=== PATIENT | male | born 1945 | race Caucasian/White ===

== ENCOUNTER → 2017-03-24 | Outpatient (CLI) | payer MEDICARE | END | disposition home or self-care (01) | LOC: LABWHC1 13:57 | PROVIDERS: ATTEND Orthopaedic Surgery | DX: Z01.812 Encounter for preprocedural laboratory examination (principal) | CPT/HCPCS: 87070 ==

== ENCOUNTER 2017-04-14 08:25 | Inpatient (IN) | payer MEDICARE ==
[2017-04-09 15:00] VITALS: BMI 28.7
--- NOTE | 2017-04-13 18:54 | HP ---
HISTORY AND PHYSICAL REASON FOR ADMISSION: Surgery is 04/14/2017 HISTORY OF PRESENT ILLNESS: Rigoberto is a 71-year-old patient seen with symptomatic left knee osteoarthritis. After having treatment options discussed, he elected to proceed left total knee arthroplasty. Consent regarding the procedure was obtained. Medical clearance was provided by Dr. Sharpe. PAST MEDICAL HISTORY: Hyperlipidemia, hypertension, gastroesophageal reflux disease, cardiovascular disease. PAST SURGICAL HISTORY: Total hip arthroplasty. DAILY MEDICATIONS: Aspirin, omeprazole, amlodipine, rosuvastatin, maxalone. ALLERGIES: None. SOCIAL HISTORY: Patient denies tobacco use. PHYSICAL EXAMINATION: Evaluation of left knee range of motion 0-115 degrees. Tenderness along the medial joint line. Positive medial Aparna's. Mild effusion. Crepitus along the medial patellofemoral compartments with range of motion. Pain with patellofemoral compression. Ligaments stable. Hip rotation without pain. Distal neurovascular exam intact. RADIOGRAPHS: Left knee radiographs reveal severe medial and moderate patellofemoral compartment osteoarthritis. IMPRESSION: Left knee osteoarthritis. PLAN: Left total knee arthroplasty. Surgery is 04/14/2017. MMODL / IJN: [id number] /
[~2017-04-14 08:25] MED LIST: ACETAMINOPHEN TAB 500 MG TAB PO ONE; HYDROmorphone 0.5 MG/0.5 ML SYRINGE IVP PRN; MELOXICAM 7.5 MG TAB PO ONE; MIDAZOLAM 2 MG/2 ML VIAL IV PRN; MORPHINE SULFATE 4 MG/ML SYRINGE IV PRN; ONDANSETRON 4 MG/2 ML VIAL IVP PRN; TRANEXAMIC ACID 1,000 MG in SODIUM CHLORIDE 0.9% 50 ML IVPB ONE; ceFAZolin IN SWFI 2 GM/20 ML SYRINGE IVP ONE
[2017-04-14] MEDS: LACTATED RINGERS 1,000 ML IV SCH ×4 (09:09→22:33)
[2017-04-14] MEDS ORDERED: LIDOCAINE 1% 20 ML VIAL (10MG/ML) FOR IV START INTRADERMA ONE (09:09)
[2017-04-14] MEDS ORDERED: ROPIVACAINE 246.25 MG, EPINEPHrine 0.5 MG, KETOROLAC 30 MG, cloNIDine HCL/PF 80 MCG, WA... MISCELLANE ONE ×5 (09:35)
[2017-04-14] MEDS ORDERED: MIDAZOLAM 2 MG/2 ML VIAL IVP ONE (09:40)
[2017-04-14] MEDS ORDERED: MIDAZOLAM 2 MG/2 ML VIAL ONE (10:01)
[2017-04-14] MEDS ORDERED: TRANEXAMIC ACID 1,000 MG/10 ML VIAL ONE (10:01)
[2017-04-14] MEDS ORDERED: fentaNYL (PF) 50 MCG/ML 2 ML AMP ONE (10:01)
[2017-04-14] MEDS ORDERED: diphenhydrAMINE 50 MG/ML 1 ML VIAL ONE (10:01)
[2017-04-14] MEDS ORDERED: PROPOFOL 10 MG/ML 20 ML VIAL IV ONE (10:01)
[2017-04-14] MEDS ORDERED: SODIUM CHLORIDE 0.9% 100 ML BAG ONE (10:01)
[2017-04-14] MEDS ORDERED: LACTATED RINGERS 1,000 ML IV ONE ×2 (11:28)
[2017-04-14] MEDS ORDERED: HYDROcodone/APAP 7.5-325MG 1 EACH TAB PO PRN (11:57)
[2017-04-14] MEDS ORDERED: hydrOXYzine PAMOATE 25 MG CAP PO PRN (11:57)
[2017-04-14] MEDS ORDERED: ONDANSETRON 4 MG/2 ML VIAL IVP PRN (11:57)
[2017-04-14] MEDS ORDERED: NALOXONE 0.4 MG/ML 1 ML VIAL IV PRN (11:57)
[2017-04-14] MEDS ORDERED: HYDROmorphone 0.5 MG/0.5 ML SYRINGE IVP PRN ×3 (11:57)
--- NOTE | 2017-04-14 11:57 | P.OP ---
Date of Procedure: 04/14/17 Preoperative Diagnosis: Left knee osteoarthritis Postoperative Diagnosis: Left knee osteoarthritis Procedure(s) Performed: Left total knee arthroplasty Implants: 1. Rahul persona size 10 left narrow cruciate retaining cemented femur 2. Rahul persona size 5 left cemented tibia 3. Rahul persona 10 mm medial congruent polyethylene tibial insert 4. Rahul persona 35 mm all polyethylene cemented patella Anesthesia: regional (Adductor canal catheter), local, spinal Surgeon: Sukhjinder Finn Deadener #1: Getachew Hensley Estimated Blood Loss (ml): 50 Pathology: other (bone) Condition: stable Disposition: PACU Indications for Procedure: 71-year-old patient seen with symptomatic left knee osteoarthritis. After treatment options were discussed, he elected to proceed with total knee arthroplasty. Operative Findings: see description of procedure Description of Procedure: Patient was taken to the operative suite after having and adductor canal catheter placed by the department of anesthesia. Patient underwent a spinal anesthetic by the department of anesthesia. Patient was given preoperative IV intake antibiotics and TXA. A well-padded tourniquet was placed about the [] lower extremity. The lower extremity was then prepped and draped in the normal sterile orthopedic fashion. The extremity was elevated, a tourniquet was insufflated to 350. A standard anterior incision was made sharply through skin. Dissection was taken down through the subcutaneous soft tissues down to the extensor mechanism. A medial arthrotomy was performed, patella was everted and knee was flexed. There was advanced osteoarthritis noted. A proximal tibial cutting guide was positioned. Proximal tibial cut was made. A distal intramedullary femoral cutting guide was positioned, distal femoral cut made. We placed the appropriate sizing guide and selected the appropriate size. A distal 4-in-1 femoral cutting block was positioned, distal femoral cuts were made. We now placed a trial femoral component into position, along with an appropriate size tibial tray and insert. We now took the knee through range of motion and had full extension good flexion and good overall soft tissue balance noted. The patella was everted and a flush cut made with patellar quad tendon. We templated the patella, appropriate drill holes were made. An appropriate trial patella was positioned, knee was taken through full range of motion with the patella tracking very nicely. The trial patella was removed. Drill holes were made through the femoral component. All trial components were removed after marking off the appropriate rotation of the tibia. Retractors were now positioned along the proximal tibia. An appropriate keel punch was made with the appropriate size tibial guide. At this point appropriate size implants were chosen and opened. The joint was irrigated copiously with pulse lavage mechanical irrigation. The posterior capsule was infiltrated with local analgesic. We mixed antibiotic methylmethacrylate. Once the methyl methacrylate was ready, the tibial component was cemented into place removing any excess methylmethacrylate. The femoral component was cemented into place removing the removing any excess methylmethacrylate. We then inserted the appropriate size polyethylene tibial insert. We made sure that it was locked into position. We took the knee into full extension, and then back in a flexion making sure we had removed any excess methylmethacrylate. The patellar component was then cemented down and secured with clamp. Excess methylmethacrylate removed. We kept the knee in full extension, patellar clamp in position until methylmethacrylate had hardened. Once it had hardened the patellar clamp was removed. The knee was taken through full range of motion. The patella tracked nicely. There was good soft tissue balancing. The tourniquet was now released. Additional hemostasis was achieved via electrocautery. A second gram of TXA was given. The wound was irrigated with pulse lavage mechanical irrigation. The extensor mechanism was repaired with Vicryl. We checked the repair with range of motion and it was stable. The subcutaneous soft tissues were repaired with Vicryl in layers. The skin was approximated with pernio/Dermabond. Sterile dressings were applied followed by loose web roll and Stephen bandage. The patient was transferred to a bed, and taken to recovery in stable and satisfactory condition. Jaison RIVERA assisted with the procedure.
--- NOTE | 2017-04-14 13:13 | XR ---
EXAMINATION TYPE: XR knee limited LT DATE OF EXAM: 04/14/2017 COMPARISON: NONE HISTORY: Post knee replacement TECHNIQUE: 2 view left knee FINDINGS: Tibial and femoral components of in place. Some surgical amanda are within the soft tissue s of the distal thigh. Postsurgical changes are within the knee joint space. No acute fractures are e vident. IMPRESSION: 1. No acute fractures post knee replacement.
[2017-04-14] MEDS ORDERED: ROPIVACAINE 1,100 MG, SODIUM CHLORIDE 0.9% 330 ML MISCELLANE PRN ×2 (13:22)
[2017-04-14] MEDS ORDERED: diphenhydrAMINE 50 MG/ML 1 ML VIAL IVP ONE (15:02)
--- NOTE | 2017-04-14 16:16 | P.CONS ---
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 Patient presents to the hospital for a left total knee arthroplasty with Dr. Finn. Patient tolerated surgery well. Estimated blood loss 50 mL. Patient denies any chest pain, shortness of breath, nausea or vomiting, bowel movement changes or urinary symptoms. Denies any fever chills or sweats. We've been consulted for medical management Review of Systems please refer to HPI otherwise unremarkable Past Medical History Past Medical History: Coronary Artery Disease (CAD), CVA/TIA, Eye Disorder, GERD /Reflux, Hyperlipidemia, Hypertension, Osteoarthritis (OA), Sleep Apnea/CPAP/ BIPAP, Syncope Additional Past Medical History / Comment(s): RT EYE STROKE, HX CATARACT. USING CPAP. History of Any Multi-Drug Resistant Organisms: None Reported Past Surgical History: Heart Catheterization With Stent, Joint Replacement, Tonsillectomy Additional Past Surgical History / Comment(s): TOTAL RT HIP. RT EYE CATARACT EXC, IMPLANT. LOOP IMPLANT, ICM DEVICE, 23pressTRONIC. Past Anesthesia/Blood Transfusion Reactions: No Reported Reaction Date of Last Stent Placement:: 2013 Type of Cardiac Device: Loop Device Placement Date:: 2013 EST Smoking Status: Never smoker - Past Family History Father Family Medical History: Cancer Mother Family Medical History: Cancer Medications and Allergies Home Medications Medication Instructions Recorded Confirmed Type Aspirin 325 mg PO DAILY 05/17/15 04/14/17 History Clopidogrel [Plavix] 75 mg PO DAILY 05/17/15 04/14/17 History Ibuprofen [Motrin] 800 mg PO Q8H PRN 05/17/15 04/14/17 History Magnesium Oxide [Mag-Ox] 400 mg PO HS 05/17/15 04/14/17 History Multivitamin [Men's Multi-Vitamin] 1 tab PO DAILY 05/17/15 04/14/17 History [place]-3 Fatty Acids/Fish Oil [Fish 500 mg PO DAILY 05/17/15 04/14/17 History Oil 1,000 mg Softgel] Omeprazole [PriLOSEC] 20 mg PO AC-BRKFST 05/17/15 04/14/17 History rOPINIRole HCL [Requip] 2 mg PO TID 05/17/15 04/14/17 History Rosuvastatin Calcium 5 mg PO HS 04/09/17 04/14/17 History amLODIPine [Norvasc] 10 mg PO DAILY 04/09/17 04/14/17 History Allergies Allergy/AdvReac Type Severity Reaction Status Date / Time No Known Allergies Allergy Verified 04/14/17 13:06 Physical Exam Vitals: Vital Signs Temp Pulse Pulse Resp BP BP Pulse Ox 04/14/17 15:55 97.6 F 84 14 144/76 97 04/14/17 15:00 77 18 140/77 96 04/14/17 14:16 62 18 135/72 98 04/14/17 13:35 61 18 131/65 96 04/14/17 13:20 70 18 120/56 96 04/14/17 13:05 73 18 121/56 95 04/14/17 12:50 66 18 129/60 04/14/17 12:37 77 18 136/64 99 04/14/17 12:22 97.6 F 87 18 138/65 98 04/14/17 09:58 70 18 155/75 99 04/14/17 08:46 97.8 F 81 18 184/82 98 Intake and Output 04/14/17 04/14/17 04/14/17 06:59 14:59 22:59 Intake Total 1100 200 Output Total 50 Balance 1050 200 Intake: IV 1100 200 Output: Estimated Blood Loss 50 Head normocephalic Neck supple Lungs clear to auscultation bilaterally no wheezing or crackles Heart regular rate and rhythm S1-S2, no rub or gallop Abdomen is soft nontender nondistended positive bowel sounds no hepatosplenomegaly Extremities no edema. Left knee bandaged clean dry and intact Neuro alert and orientated to 3 Assessment and Plan Assessment: 1. Osteoarthritis: Status post left total knee arthroplasty. On Lovenox for DVT prophylaxis. Continue with current meds for pain control 2. Essential hypertension:blood pressure stable. Resume Norvasc 3. Hyperlipidemia resume statin 4. Restless legs syndrome continue Requip 5. History of coronary artery disease with cardiac stents and triple-vessel coronary artery bypass grafting. Continue aspirin and Plavix 6. 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 Obstructive sleep apnea uses CPAP at home 8. GERD resume omeprazole GI prophylaxis omeprazole and Lovenox Thank you for this consultation. We'll continue to follow along with you. Checked a routine CBC and BMP in a.m. Time with Patient: Greater than 30 (Greater than 50% of the total time spent in counseling and coordination of care.I performed an examination of the patient and discussed their management with the physician Ekg Tech. I have reviewed the Physician Ekg Tech's notes and agree with the documented findings and plan of care)
[2017-04-14] MEDS: HYDROcodone/APAP 7.5-325MG 1 EACH TAB PO PRN ×2 (16:27→22:31)
[2017-04-14] MEDS: traMADol 50 MG TAB PO SCH ×2 (17:46→23:07)
[2017-04-14] MEDS: ceFAZolin IN SWFI 2 GM/20 ML SYRINGE IVP SCH (17:46)
[2017-04-14] MEDS: ENOXAPARIN 30 MG/0.3 ML SYRINGE SQ SCH (20:07)
[2017-04-14] MEDS ORDERED: ATORVASTATIN 10 MG TAB PO SCH (21:00)
[2017-04-14] MEDS ORDERED: SENNOSIDES-DOCUSATE SODIUM 1 EACH TAB PO SCH (21:00)
[2017-04-14] MEDS ORDERED: MAGNESIUM OXIDE 400 MG TAB PO SCH (21:00)
[2017-04-15] MEDS: LACTATED RINGERS 1,000 ML IV SCH ×2 (00:50→08:59)
[2017-04-15] MEDS: ceFAZolin IN SWFI 2 GM/20 ML SYRINGE IVP SCH (02:03)
[2017-04-15] MEDS: HYDROcodone/APAP 7.5-325MG 1 EACH TAB PO PRN ×2 (04:22→10:15)
[2017-04-15 06:56] VITALS: PULSE 89; RESP 14; TEMP 98.7
[2017-04-15 07:28] LABS: Basophils % (A) 0 %; Eosinophils # (A) 0.2 k/uL (0-0.7); Eosinophils % (A) 3 %; HCT 38.2 % (39.0-53.0); HGB 12.2 gm/dL (13.0-17.5); Lymphocytes % (A) 14 %; MCH 29.2 pg (25.0-35.0); MCHC 31.9 g/dL (31.0-37.0); MCV 91.5 fL (80.0-100.0); Mean Platelet Volume 8.3; Monocytes # (A) 0.5 k/uL (0-1.0); Monocytes % (A) 7 %; Neutrophils # (A) 5.3 k/uL (1.3-7.7); Neutrophils % (A) 74 %; Platelet Count 147 k/uL (150-450); RBC 4.18 m/uL (4.30-5.90); RDW 13.6 % (11.5-15.5); WBC 7.2 k/uL (3.8-10.6)
[2017-04-15] MEDS ORDERED: PANTOPRAZOLE 40 MG TABLET PO SCH (07:30)
[2017-04-15] MEDS: traMADol 50 MG TAB PO SCH (07:58)
[2017-04-15 08:00] LABS: Anion Gap 6 mmol/L; Blood Urea Nitrogen 21 mg/dL (9-20); Calcium 8.6 mg/dL (8.4-10.2); Carbon Dioxide 31 mmol/L (22-30); Chloride 102 mmol/L (98-107); Glucose 90 mg/dL (74-99); Sodium 139 mmol/L (137-145)
[2017-04-15 08:03] LABS: Potassium 5.3 mmol/L (3.5-5.1)
[2017-04-15] MEDS: ENOXAPARIN 30 MG/0.3 ML SYRINGE SQ SCH (08:10)
[2017-04-15] MEDS ORDERED: SODIUM POLYSTYRENE SULFONATE 15 GM/60 ML BOTTLE PO STA (08:29)
[2017-04-15] MEDS ORDERED: NON-FORMULARY DRUG (Multivitamin [Men's Multi-Vitamin] 1 TAB) PO SCH (09:00)
[2017-04-15] MEDS ORDERED: OMEGA PO SCH (09:00)
[2017-04-15] MEDS ORDERED: FAMOTIDINE 20 MG TAB PO SCH (09:00)
[2017-04-15] MEDS ORDERED: ASPIRIN 325 MG TAB PO SCH (09:00)
[2017-04-15] MEDS ORDERED: FISH OIL PO SCH (09:00)
[2017-04-15] MEDS ORDERED: MELOXICAM 7.5 MG TAB PO SCH (09:00)
[2017-04-15] MEDS ORDERED: FATTY ACIDS PO SCH (09:00)
[2017-04-15] MEDS ORDERED: amLODIPine 10 MG TAB PO SCH (09:00)
[2017-04-15] MEDS ORDERED: CLOPIDOGREL 75 MG TAB PO SCH (09:00)
--- NOTE | 2017-04-15 09:58 | P.ONQ ---
Anesthesiology Proc Note - PNB - Peripheral Nerve Block Performed Left Adductor Canal Infusion Time Out Performed: Yes Procedure Start Time: 09:40 Procedure Stop Time: 09:48 Indication: Acute Post-Operative Pain, Requested by physician Sedation Type: Sedate with meaningful contact maintained Preparation: Sterile Dressing Position: Supine Catheter: Indwelling Needle Types: On-Q Needle Size: 100mm (4") Needle Gauge: 18 Technique: Ultrasound Injectate: 0.5% Ropivacaine (see comment for volume) (ropi .5% 20cc) Blood Aspirated: No Pain Paresthesia on Injection Noted: No Resistance on Injection: Normal Events: Uneventful and Well Tolerated
[2017-04-15 10:16] VITALS: BP 138/78
--- NOTE | 2017-04-15 10:16 | P.PN ---
Progress Note - Text 04/15 658am This 71-year-old male status post left total knee replacement by Dr. Finn. Patient seen and evaluated for postop pain control this morning, patient had a VAS of 2 slept well through the night On-Q pump solution running at 8 mL an hour. Plans to go home today
--- NOTE | 2017-04-15 11:30 | P.PN ---
Subjective Progress Note Date: 04/15/17 Principal diagnosis: status post left total knee arthroplasty patient is seen today resting in his hospital bed, he appears comfortable. He is ambulating well with therapy. He is urinating his own. He denies any headaches, lightheadedness, chest pain or shortness of breath. Objective - Vital Signs Vital signs: Vital Signs Temp 98.7 F 04/15/17 06:54 Pulse 89 04/15/17 06:54 Resp 14 04/15/17 06:54 BP 138/78 04/15/17 10:16 Pulse Ox 97 04/15/17 06:54 Intake & Output 04/14/17 04/15/17 04/15/17 18:59 06:59 18:59 Intake Total 1300 1280 240 Output Total 50 650 Balance 1250 630 240 Weight 90.718 kg Intake: IV 1300 Intake, IV Titration 880 Amount Lactated Ringers 1,000 ml 880 @ 80 mls/hr IV .[id number] MONA Rx#:[id number] Oral 400 240 Output: Urine 650 Estimated Blood Loss 50 Other: Voiding Method Toilet - Exam left lower extremity: Incision is clean, dry, and intact. The prineo tape is in good condition. There is minimal soft tissue swelling and ecchymosis surrounding the medial and lateral aspects of the incision. Calf is soft, no tenderness with palpation. Plantar flexion, dorsiflexion, EHL, FHL are intact. Sensory exam to light touch throughout the extremity is intact, dorsal pedis pulses 2+. - Labs CBC & Chem 7: 04/15/17 06:39 04/15/17 06:39 Labs: Abnormal Lab Results - Last 24 Hours (Table) 04/15/17 04/15/17 Range/Units 06:39 06:39 RBC 4.18 L (4.30-5.90) m/uL Hgb 12.2 L (13.0-17.5) gm/dL Hct 38.2 L (39.0-53.0) % Plt Count 147 L (150-450) k/uL Potassium 5.3 H (3.5-5.1) mmol/L Carbon Dioxide 31 H (22-30) mmol/L BUN 21 H (9-20) mg/dL Assessment and Plan Plan: assessment: 1. Postop day 1 status post left total knee arthroplasty plan: 1. Patient will be discharged home on oral medication 2. Home therapy and nursing of discharge 3. GI and DVT prophylaxis, he'll resume his home aspirin and Plavix 4. Wound care instructions were discussed 5. Medical recommendations 6. Discharge planning: Patient will be discharged home today Time with Patient: Less than 30
--- NOTE | 2017-04-15 11:33 | P.DS ---
Providers Date of admission: 04/14/17 08:25 Expected date of discharge: 04/15/17 Attending physician: Sukhjinder Finn Consults: 04/14/17 11:57 Consult Physician Routine Consulting Provider: Helen Mcallister Consult Reason/Comments: Medical management Do you want consulting provider notified?: Yes Primary care physician: [facility] Course: Date of admission: 04/14/2017 Date of discharge: 04/15/2017 Admission diagnosis: status post left total knee arthroplasty Discharge diagnosis: same Attending physician: Dr. Finn Surgical procedures: left total knee arthroplasty Brief history: Patient is a 71-year-old male with a history of progressive primary left knee osteoarthritis . At this point patient has failed conservative treatment measures and has opted to proceed with a elective left total knee arthroplasty. Hospital course: Details of patient's surgery can be found in operative report. Patient tolerated the procedure well and was subsequently transported to orthopedic floor. Patient's orthopeidc and medical care was provided daily. Patient had daily laboratory tests performed for evaluation of overall blood counts. Patient had daily physical therapy to include strengthening range of motion as well as education with walker ambulation. Patient had daily CPM usage as part of their physical therapy program. Patient was treated with Lovenox for their postoperative DVT prophylaxis during their inpatient stay. Patient was noted to have a relatively uneventful postoperative course. Patient reported satisfactory pain control with oral pain medications by postoperative day 0. Patient showed satisfactory progress with physical therapy. Patient moved steadily through the program and had no difficulty meeting the goals by postoperative day 1. Given patient's otherwise satisfactory course and having met physical therapy goals, plan is to discharge patient home on postoperative day 1. Discharge condition/disposition: Patient will be discharged home in stable condition. Discharge medications: Instructions are given on resumption of patient's normal daily medications per primary care recommendation, in addition patient will be prescribed Butler 7.5 mg/325 mg, tramadol 50 mg, Colace 100 mg. Discharge instructions: 1. Wound care and infection precautions, keep incision dry and covered while showering, no lotions, creams, moisturizers. No soaking, tubs, pools, hottubs. Do not scrub over the incision. 2. Weight-bear as tolerate with walker / cane until follow-up. 3. Ice and elevate when necessary. Do not exceed 20 minutes per hour with ice pack. 4. Utilize compression sleeve until seen at first follow up appointment. 5. Visiting nursing care. 6. Home physical therapy including home CPM. 7. Pain meds and anticoagulants per prescription. 8. Pain medication has potential to cause constipation. Increase oral fluid and fiber intake. Contact primary care provider if you have not had a bowel movement within 48 hours after discharge 9. No anti-inflammatory medication until discussed at first post operative visit, this including Motrin, Aleve, Mobic, Diclofenac. 10. Follow up in office at 2 weeks postop with Jaison Hensley PA-C 11. Follow up with your primary care doctor 7-10 days after discharge. 12. Contact [facility] with any questions, . Procedures: Left total knee arthroplasty Patient Condition at Discharge: Good Plan - Discharge Summary Discharge Rx Participant: Yes New Discharge Prescriptions: New Docusate [Colace] 100 mg PO DAILY #30 capsule HYDROcodone/APAP 7.5-325MG [Butler 7.5] 1 - 2 each PO Q6HR PRN #60 tab PRN Reason: Pain traMADol HCl [Ultram] 50 mg PO Q6H PRN #40 tab PRN Reason: Pain Continue rOPINIRole HCL [Requip] 2 mg PO TID Clopidogrel [Plavix] 75 mg PO DAILY Aspirin 325 mg PO DAILY Omeprazole [PriLOSEC] 20 mg PO AC-BRKFST Multivitamin [Men's Multi-Vitamin] 1 tab PO DAILY [place]-3 Fatty Acids/Fish Oil [Fish Oil 1,000 mg Softgel] 500 mg PO DAILY Magnesium Oxide [Mag-Ox] 400 mg PO HS amLODIPine [Norvasc] 10 mg PO DAILY Rosuvastatin Calcium 5 mg PO HS Discontinued Ibuprofen [Motrin] 800 mg PO Q8H PRN PRN Reason: Pain Discharge Medication List Aspirin 325 mg PO DAILY 05/17/15 [History] Clopidogrel [Plavix] 75 mg PO DAILY 05/17/15 [History] Magnesium Oxide [Mag-Ox] 400 mg PO HS 05/17/15 [History] Multivitamin [Men's Multi-Vitamin] 1 tab PO DAILY 05/17/15 [History] [place]-3 Fatty Acids/Fish Oil [Fish Oil 1,000 mg Softgel] 500 mg PO DAILY [History] Omeprazole [PriLOSEC] 20 mg PO AC-BRKFST 05/17/15 [History] rOPINIRole HCL [Requip] 2 mg PO TID 05/17/15 [History] Rosuvastatin Calcium 5 mg PO HS 04/09/17 [History] amLODIPine [Norvasc] 10 mg PO DAILY 04/09/17 [History] Docusate [Colace] 100 mg PO DAILY #30 capsule 04/15/17 [Rx] HYDROcodone/APAP 7.5-325MG [Butler 7.5] 1 - 2 each PO Q6HR PRN #60 tab 04/15/17 [ Rx] traMADol HCl [Ultram] 50 mg PO Q6H PRN #40 tab 04/15/17 [Rx] Follow up Appointment(s)/Referral(s): [facility], [NON-STAFF] - Emily Sharpe DO [Primary Care Provider] - 04/24/17 10:30 am Getachew Hensley PAC [PHYSICIAN FERMENTER HELPER] - 04/30/17 1:50 pm Patient Instructions/Handouts: Knee Replacement (DC) Activity/Diet/Wound Care/Special Instructions: Orthopedic Discharge Instructions: 1. Wound care and infection precautions, keep incision dry and covered while showering, no lotions, creams, moisturizers. No soaking, pools, hot tubs. Do not scrub over incision. 2. Weight-bear as tolerated with walker / cane until follow-up. 3. Ice and elevate when necessary. Do not exceed 20 minutes per hour with ice pack. 4. Utilize compression sleeve until seen at first follow up appointment. 5. Visiting nursing care. 6. Home physical therapy including home CPM. 7. Pain meds and anticoagulants per prescription. 8. Pain medication has potential to cause constipation. Increase oral fluid and fiber intake. Contact primary care provider if you have not had a bowel movement within 48 hours after discharge. 9. No anti-inflammatory medication until discussed at first post operative visit, this including Motrin, Aleve, Mobic, Diclofenac. 10. Follow up in office at 2 weeks postop with Jaison Hensley PA-C 11. Follow up with your primary care doctor 7-10 days after discharge. 12. Contact [facility] with any questions, [phone]. 13. [facility] - [phone] - will deliver to room before discharge Discharge Disposition: HOME WITH HOME HEALTH SERVICES
[2017-04-15] MEDS ORDERED: MULTIVITAMINS, THERA 1 EACH TAB PO SCH (12:00)
--- NOTE | 2017-04-15 12:28 | P.PN ---
Subjective Progress Note Date: 04/15/17 Status post left total knee arthroplasty Patient's pain is controlled. He's been up and ambulating. He is scheduled for discharge today. Denies any chest pain or shortness breath. Denies any nausea or vomiting. Passing gas no bowel movement yet. Objective - Vital Signs Vital signs: Vital Signs Temp 98.7 F 04/15/17 06:54 Pulse 89 04/15/17 06:54 Resp 14 04/15/17 06:54 BP 138/78 04/15/17 10:16 Pulse Ox 97 04/15/17 06:54 Intake & Output 04/14/17 04/15/17 04/15/17 18:59 06:59 18:59 Intake Total 1300 1280 240 Output Total 50 650 Balance 1250 630 240 Weight 90.718 kg Intake: IV 1300 Intake, IV Titration 880 Amount Lactated Ringers 1,000 ml 880 @ 80 mls/hr IV .[id number] MONA Rx#:[id number] Oral 400 240 Output: Urine 650 Estimated Blood Loss 50 Other: Voiding Method Toilet - Exam Head normocephalic Neck supple Lungs clear to auscultation bilaterally no wheezing or crackles Heart regular rate and rhythm S1-S2, no rub or gallop Abdomen is soft nontender nondistended positive bowel sounds no hepatosplenomegaly Extremities no edema. Left knee incision clean dry and intact. Mild ecchymosis no evidence of cellulitis Neuro alert and orientated to 3 - Labs CBC & Chem 7: 04/15/17 06:39 04/15/17 06:39 Labs: Abnormal Lab Results - Last 24 Hours (Table) 04/15/17 04/15/17 Range/Units 06:39 06:39 RBC 4.18 L (4.30-5.90) m/uL Hgb 12.2 L (13.0-17.5) gm/dL Hct 38.2 L (39.0-53.0) % Plt Count 147 L (150-450) k/uL Potassium 5.3 H (3.5-5.1) mmol/L Carbon Dioxide 31 H (22-30) mmol/L BUN 21 H (9-20) mg/dL Assessment and Plan Assessment: 1. Osteoarthritis: Status post left total knee arthroplasty. For DVT prophylaxis orthopedics it just resume patient's aspirin and Plavix 2. Essential hypertension:blood pressure stable. Continue Norvasc 3. Hyperlipidemia resume statin 4. Restless legs syndrome continue Requip 5. History of coronary artery disease with cardiac stents and triple-vessel coronary artery bypass grafting. Continue aspirin and Plavix 6. 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 Obstructive sleep apnea uses CPAP at home 8. GERD resume omeprazole 9. Hyperkalemia potassium 5.3. Patient will be given Kayexalate 15 g 1. Recommend repeating a potassium level on Friday Patient is medically stable for discharge. We'll have him follow up with his PCP in 1 week
== END 2017-04-15 13:20 | disposition home health service (06) | DRG 470 ==
LOC: 2ORMAIN 08:25 → 3SUR 15:22
PROVIDERS: ADMIT Orthopaedic Surgery; ATTEND Orthopaedic Surgery
PROC: 0SRD0J9 Replacement of Left Knee Joint with Synthetic Substitute, Cemented, Open Approach (ICD-10-PCS; principal; 2017-04-14 10:20)
DX: M17.12 Unilateral primary osteoarthritis, left knee (principal); E87.5 Hyperkalemia; E78.5 Hyperlipidemia, unspecified; G25.81 Restless legs syndrome; G47.33 Obstructive sleep apnea (adult) (pediatric); I10 Essential (primary) hypertension; I25.10 Atherosclerotic heart disease of native coronary artery without angina pectoris; K21.9 Gastro-esophageal reflux disease without esophagitis; Z79.02 Long term (current) use of antithrombotics/antiplatelets; Z79.82 Long term (current) use of aspirin; Z79.899 Other long term (current) drug therapy; Z95.1 Presence of aortocoronary bypass graft; Z95.5 Presence of coronary angioplasty implant and graft; Z96.651 Presence of right artificial knee joint; Z86.73 Personal history of transient ischemic attack (TIA), and cerebral infarction without residual deficits
CPT/HCPCS: 80048; 85025; 88300

== ENCOUNTER 2020-01-21 14:17 | Emergency (ER) | payer MEDICARE, OTHER ==
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
--- NOTE | 2020-01-21 16:35 | XR ---
EXAMINATION TYPE: XR shoulder complete LT DATE OF EXAM: 01/21/2020 COMPARISON: NONE HISTORY: Shoulder pain TECHNIQUE: 3 views FINDINGS: I see no fracture nor dislocation. Glenohumeral joint is intact. Scapula is intact. IMPRESSION: Negative left shoulder exam.
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
[2020-01-21 16:52] VITALS: BP 152/80; PULSE 69; RESP 18; TEMP 97.8
[2020-01-22 01:02] LABS: HIV 2 AB Non-Reactive (Non-Reactive); HIV AB P24 Non-Reactive (Non-Reactive); HIV P24 AG Non-Reactive (Non-Reactive)
[2020-01-22 03:48] LABS: Hepatitis B Surface AB- Quant 3.5 mIU/mL; Hepatitis B Surface Antibody Non-Reactive (Non-Reactive); Hepatitis B Surface Antigen Non-Reactive (Non-Reactive); Hepatitis C IgG Antibody Non-Reactive (Non-Reactive)
== END 2020-01-21 16:52 | disposition home or self-care (01) ==
LOC: EC 14:17
DX: S46.912A Strain of unspecified muscle, fascia and tendon at shoulder and upper arm level, left arm, initial encounter (principal); S16.1XXA Strain of muscle, fascia and tendon at neck level, initial encounter; S29.011A Strain of muscle and tendon of front wall of thorax, initial encounter; K21.9 Gastro-esophageal reflux disease without esophagitis; E78.5 Hyperlipidemia, unspecified; I10 Essential (primary) hypertension; M19.90 Unspecified osteoarthritis, unspecified site; G47.33 Obstructive sleep apnea (adult) (pediatric); Z99.89 Dependence on other enabling machines and devices; Z79.899 Other long term (current) drug therapy; Z88.8 Allergy status to other drugs, medicaments and biological substances; Z79.82 Long term (current) use of aspirin; Z95.5 Presence of coronary angioplasty implant and graft; Z86.73 Personal history of transient ischemic attack (TIA), and cerebral infarction without residual deficits; T75.89XA Other specified effects of external causes, initial encounter; Z98.41 Cataract extraction status, right eye; Z96.1 Presence of intraocular lens; Y04.2XXA Assault by strike against or bumped into by another person, initial encounter; Y93.89 Activity, other specified; Y92.89 Other specified places as the place of occurrence of the external cause; Y99.0 Civilian activity done for income or pay
CPT/HCPCS: 36415; 71046; 86706; 86803; 87340; 87390; 99284

== ENCOUNTER → 2020-08-21 | Outpatient (CLI) | payer MEDICARE | END | disposition home or self-care (01) | LOC: LABPAT 10:39 | PROVIDERS: ATTEND Orthopaedic Surgery | DX: Z01.812 Encounter for preprocedural laboratory examination (principal) | CPT/HCPCS: 87070 ==

== ENCOUNTER 2020-09-25 05:47 | Day surgery (SDC) | payer MEDICARE ==
[2020-09-21 11:09] VITALS: BMI 31.5
--- NOTE | 2020-09-24 10:36 | HP ---
HISTORY AND PHYSICAL DATE OF SURGERY: 09/25/2020 HISTORY OF PRESENT ILLNESS: Rigoberto Kirby is a 74-year-old gentleman seen with symptomatic right knee osteoarthritis. We discussed options for treatment. He elected to proceed with right total knee arthroplasty. Consent was obtained. Medical clearance was provided by Dr. Sharpe. PAST MEDICAL HISTORY: Hypertension, hyperlipidemia, gastroesophageal reflux disease. PAST SURGICAL HISTORY: Hip arthroplasty, total knee arthroplasty, eye surgery. DAILY MEDICATIONS: Amlodipine, omeprazole, losartan, aspirin. ALLERGIES: NONE. SOCIAL HISTORY: Denies tobacco use. PHYSICAL EVALUATION OF THE RIGHT KNEE: Range of motion zero to 130. Mild effusion. Tenderness medial joint line. Crepitus medial patellofemoral compartments with range of motion. Pain with patellofemoral compression. Ligaments stable. Hip rotation without pain. Distal neurovascular exam is intact. RADIOGRAPHS: Radiographs of the right knee reveal severe osteoarthritic changes. IMPRESSION: 1. Right knee osteoarthritis. 2. Hypertension. 3. Hyperlipidemia. PLAN: Right total knee arthroplasty. MMODL / IJN: [id number] /
[~2020-09-25 05:47] MED LIST changes: -ACETAMINOPHEN TAB 500 MG TAB PO ONE; +ACETAMINOPHEN TAB 500 MG TAB PO PRN; +DEXAMETHASONE SOD PHOSPHATE 4 MG/ML 1 ML VIAL IV ONE; -HYDROmorphone 0.5 MG/0.5 ML SYRINGE IVP PRN; +LACTATED RINGERS 1,000 ML IV SCH; -MELOXICAM 7.5 MG TAB PO ONE; +MELOXICAM 7.5 MG TAB PO PRN; -MIDAZOLAM 2 MG/2 ML VIAL IV PRN; -MORPHINE SULFATE 4 MG/ML SYRINGE IV PRN; +ONDANSETRON 4 MG/2 ML VIAL IVP ONE; -ONDANSETRON 4 MG/2 ML VIAL IVP PRN; +ROPIVACAINE/EPI/CLONIDINE/KET 50 ML SYRINGE MISCELLANE PRN; +TRANEXAMIC ACID 1,000 MG in SODIUM CHLORIDE 0.9% 100 ML IVPB PRN; -TRANEXAMIC ACID 1,000 MG in SODIUM CHLORIDE 0.9% 50 ML IVPB ONE; -ceFAZolin IN SWFI 2 GM/20 ML SYRINGE IVP ONE
[2020-09-25] MEDS ORDERED: HYDROmorphone 0.5 MG/0.5 ML SYRINGE IVP PRN ×3 (07:00→09:20)
[2020-09-25] MEDS ORDERED: fentaNYL (PF) 50 MCG/ML 2 ML AMP IVP ONE (07:15)
[2020-09-25] MEDS ORDERED: MIDAZOLAM 2 MG/2 ML VIAL IVP ONE (07:15)
[2020-09-25 07:16] LABS: Basophils % (A) 0 %; Eosinophils # (A) 0.2 k/uL (0-0.7); Eosinophils % (A) 4 %; HCT 38.6 % (39.0-53.0); HGB 13.2 gm/dL (13.0-17.5); Lymphocytes # (A) 1.4 k/uL (1.0-4.8); Lymphocytes % (A) 24 %; MCH 29.5 pg (25.0-35.0); MCHC 34.3 g/dL (31.0-37.0); MCV 85.9 fL (80.0-100.0); Mean Platelet Volume 8.2; Monocytes # (A) 0.5 k/uL (0-1.0); Monocytes % (A) 8 %; Neutrophils # (A) 3.6 k/uL (1.3-7.7); Neutrophils % (A) 63 %; Platelet Count 167 k/uL (150-450); RBC 4.49 m/uL (4.30-5.90); RDW 12.9 % (11.5-15.5); WBC 5.8 k/uL (3.8-10.6)
[2020-09-25 07:27] LABS: Albumin 4.1 g/dL (3.5-5.0); Calcium 9.1 mg/dL (8.4-10.2); Potassium 4.5 mmol/L (3.5-5.1); Total Bilirubin 0.4 mg/dL (0.2-1.3)
[2020-09-25] MEDS ORDERED: DEXAMETHASONE SOD PHOSPHATE 4 MG/ML 1 ML VIAL IVP ONE (07:30)
[2020-09-25] MEDS ORDERED: ONDANSETRON 4 MG/2 ML VIAL IVP ONE (07:30)
[2020-09-25] MEDS ORDERED: SODIUM CHLORIDE 0.9% 100 ML BAG ONE (07:31)
[2020-09-25] MEDS ORDERED: PROPOFOL 10 MG/ML 20 ML VIAL IV ONE (07:31)
[2020-09-25] MEDS ORDERED: LIDOCAINE 1% INJ 10MG/ML (20 ML MDV) ONE (07:31)
[2020-09-25] MEDS ORDERED: HYDROmorphone (PF) 1 MG/ML ONE (07:31)
[2020-09-25] MEDS ORDERED: ROCURONIUM 10 MG/ML (5 ML VIAL) IV ONE (07:31)
[2020-09-25] MEDS ORDERED: GLYCOPYRROLATE 0.2 MG/ML 2 ML VIAL ONE (07:31)
[2020-09-25] MEDS ORDERED: TRANEXAMIC ACID 1,000 MG/10 ML VIAL ONE (07:31)
[2020-09-25] MEDS ORDERED: ePHEDrine SULFATE/0.9% NACL/PF 50 MG/5 ML SYRINGE IV ONE (07:31)
[2020-09-25] MEDS ORDERED: SUCCINYLCHOLINE CHLORIDE 100 MG/5 ML SYR IV ONE (07:31)
[2020-09-25] MEDS ORDERED: fentaNYL (PF) 50 MCG/ML 2 ML AMP ONE (07:31)
[2020-09-25] MEDS ORDERED: ROPIVACAINE 5 MG/ML 30 ML VIAL ONE (07:31)
[2020-09-25] MEDS ORDERED: SODIUM CHLORIDE 0.9% (PF) 10 ML VIAL ONE (07:31)
[2020-09-25] MEDS ORDERED: NEOSTIGMINE 1 MG/ML 10 ML VIAL ONE (07:31)
[2020-09-25 07:37] LABS: Partial Thromboplastin Time 25.4 sec (22.0-30.0); Prothrombin Time 10.4 sec (9.0-12.0)
[2020-09-25] MEDS ORDERED: LACTATED RINGERS 1,000 ML IV ONE ×4 (08:45→13:55)
[2020-09-25] MEDS ORDERED: ONDANSETRON 4 MG/2 ML VIAL IVP PRN (09:20)
[2020-09-25] MEDS ORDERED: HYDROcodone/APAP 5-325MG 1 EACH TAB PO PRN ×2 (09:20)
[2020-09-25] MEDS ORDERED: HYDROmorphone 0.2 MG/1 ML SYRINGE IVP PRN (09:20)
[2020-09-25] MEDS ORDERED: NALOXONE 0.4 MG/ML 1 ML VIAL IV PRN (09:20)
--- NOTE | 2020-09-25 09:20 | P.OP ---
Date of Procedure: 09/25/20 Preoperative Diagnosis: Right knee osteoarthritis Postoperative Diagnosis: Right knee osteoarthritis Procedure(s) Performed: Right total knee arthroplasty Implants: 1. Depuy attune size 7 right cruciate retaining cemented femur 2. Depuy attune size 7 fixed bearing cemented tibial baseplate 3. Depuy attune size 7 fixed bearing cruciate retaining 10 mm polyethylene tibial insert 4. Depuy attune 41 mm all polyethylene cemented patella Anesthesia: GETA, regional (Adductor canal catheter, I pack block) Surgeon: Sukhjinder Finn Seam Sewer #1: Getachew Hensley Estimated Blood Loss (ml): 45 Pathology: other (Bone) Condition: stable Disposition: PACU Indications for Procedure: 74-year-old patient seen with symptomatic right knee osteoarthritis. After treatment options were discussed, he elected to proceed with total knee arthroplasty. Operative Findings: See description of procedure Description of Procedure: Patient was taken to the operative suite after having an adductor canal catheter placed by the department of anesthesia. Patient underwent a general anesthetic by the department of anesthesia. Patient was given preoperative IV intake antibiotics and TXA. A well-padded tourniquet was placed about the right lower extremity. The lower extremity was then prepped and draped in the normal sterile orthopedic fashion. The extremity was elevated, a tourniquet was insufflated to 300. A standard anterior incision was made sharply through skin. Dissection was taken down through the subcutaneous soft tissues down to the extensor mechanism. A medial arthrotomy was performed, patella was everted and knee was flexed. There was advanced osteoarthritis noted. I introduced my distal intramedullary femoral drill. I then introduced the distal femoral cut ting jig. Jaison RIVERA secured the cutting jig with 2 pins. I held retractors in position while Jaison RIVERA performed the distal femoral resection through the guide area we now removed her distal femoral cutting guide. We now placed our 4-in-1 femoral cutting block and positioned and it was secured with 2 pins by Jaison RIVERA while I held the block in position. The distal femoral finishing was now completed. A proximal tibial cutting guide was positioned. I held the guide in the appropriate position with both hands well Jaison RIVERA inserted stabilizing pins into the guide. Proximal tibial cut was made. We now placed a trial femoral component into position, along with an appropriate size tibial tray and insert. We now took the knee through range of motion and had full extension good flexion and good overall soft tissue balance noted. The patella was everted and stabilized with 2 towel clips held by Jaison RIVERA while I performed a flush with patellar quad tendon utilizing a fresh sawblade. We templated the patella, appropriate drill holes were made. An appropriate trial patella was positioned, knee was taken through full range of motion with the patella tracking very nicely. The trial patella was removed. Drill holes were made through the femoral component. All trial components were removed after marking off the appropriate rotation of the tibia. Retractors were now positioned along the proximal tibia. An appropriate keel punch was made with the appropriate size tibial guide by myself on Jaison RIVERA assisted by holding retractors. At this point appropriate size implants were chosen and opened. The joint was irrigated copiously with pulse lavage mechanical irrigation. The posterior capsule was infiltrated with local analgesic. The wound was irrigated with pulse lavage mechanical irrigation. We mixed antibiotic methylmethacrylate. We placed the knee into flexion. We placed multiple retractors assisted by Jaison RIVERA to expose the proximal tibia. Once the methyl methacrylate was ready, the tibial component was cemented into place removing any excess methylmethacrylate form by both myself and Jaison RIVERA. The femoral component was cemented into place removing the removing any excess methylmethacrylate performed by both myself and Jaison RIVERA. We then inserted the appropriate size polyethylene tibial insert. We made sure that it was locked into position. We took the knee into full extension, and then back in a flexion making sure we had removed any excess methylmethacrylate. The patellar component was then cemented down and secured with clamp. Excess methylmethacrylate removed. We kept the knee in full extension, patellar clamp in position until methylmethacrylate had hardened. Once it had hardened the patellar clamp was removed. The knee was taken through full range of motion. The patella tracked nicely. There was good soft tissue balancing. The tourniquet was now released. Additional hemostasis was achieved via electrocautery. A second gram of TXA was given. The wound again was irrigated with pulse lavage mechanical irrigation. The superficial soft tissues were infiltrated local analgesic. The extensor mechanism was repaired with Ethibond. We checked the repair with range of motion and it was stable. The subcutaneous soft tissues were repaired with Vicryl in layers. The skin was approximated with pernio/Dermabond. Sterile dressings were applied followed by loose web roll and Stephen bandage. The patient was transferred to a bed, and taken to recovery in stable and satisfactory condition. Jaison RIVERA assisted with this complex procedure.
[2020-09-25 09:55] VITALS: TEMP 97.2
[2020-09-25] MEDS ORDERED: ROPIVACAINE 0.2%-NS ON-Q PUMP 2 MG/ML EACH MISCELLANE ONE (09:59)
[2020-09-25] MEDS ORDERED: diphenhydrAMINE 50 MG/ML 1 ML VIAL IVP ONE (10:12)
--- NOTE | 2020-09-25 10:30 | XR ---
EXAMINATION TYPE: XR knee limited RT DATE OF EXAM: 09/25/2020 CLINICAL HISTORY: Status post right total knee arthroplasty. TECHNIQUE: Portable AP and crosstable lateral views of the right knee are obtained immediately posto peratively. COMPARISON: 08/15/2020 FINDINGS: Metallic hardware from total right knee arthroplasty is seen and appears satisfactory in a lignment and position. There is evidence of recent surgery with diffuse soft tissue gas. No acute di splaced osseous abnormality. No unexpected radiopaque foreign body. IMPRESSION: METALLIC HARDWARE FROM TOTAL RIGHT KNEE ARTHROPLASTY IS SATISFACTORY IN ALIGNMENT.
[2020-09-25] MEDS ORDERED: LABETALOL SYRINGE 5 MG/ML IVP ONE ×2 (10:36→10:43)
--- NOTE | 2020-09-25 11:01 | P.ANPRN ---
Procedure Note - Anesthesia - Nerve Block Performed Right Adductor Canal Infusion Time Out Performed: Yes (714) Date of Procedure: 09/25/20 Procedure Start Time: Procedure Stop Time: Location of Patient: PreOp Indication: Acute Post-Operative Pain, Requested by Surgeon Specifically requested for management of pain by DrKathleen: Sukhjinder Finn Sedation Type: Sedate with meaningful contact maintained Preparation: Sterile Prep Position: Supine Catheter Depth at Skin (cm): 8 Catheter: Indwelling Needle Types: Pajunk Needle Gauge: 21 Ultrasound used to visualize needle placement: Yes Ultrasound used to observe medication spread: Yes Injectate: 0.5% Ropivacaine (see comment for volume) (15cc + NACL PF 5cc) Blood Aspirated: No Pain Paresthesia on Injection Noted: No Resistance on Injection: Normal Image Stored and Saved: Yes Events: Uneventful and Well Tolerated Right iPack Single Time Out Performed: Yes (714) Date of Procedure: 09/25/20 Procedure Start Time: Procedure Stop Time: Location of Patient: PreOp Indication: Acute Post-Operative Pain, Requested by Surgeon Specifically requested for management of pain by DrKathleen: Sukhjinder Finn Sedation Type: Sedate with meaningful contact maintained Preparation: Sterile Prep Position: Supine Catheter: None Needle Types: Pajunk Needle Gauge: 21 Ultrasound used to visualize needle placement: Yes Ultrasound used to observe medication spread: Yes Injectate: 0.5% Ropivacaine (see comment for volume) (15cc + NACL PF 5cc) Blood Aspirated: No Pain Paresthesia on Injection Noted: No Resistance on Injection: Normal Image Stored and Saved: Yes Events: Uneventful and Well Tolerated
[2020-09-25] MEDS ORDERED: HYDROcodone/APAP 5-325MG 1 EACH TAB PO ONE (11:08)
[2020-09-25 11:13] VITALS: RESP 16
[2020-09-25 14:09] VITALS: BP 166/82; PULSE 65
== END 2020-09-25 14:40 | disposition home health service (06) ==
LOC: OR 05:47
PROVIDERS: ATTEND Orthopaedic Surgery
DX: M17.11 Unilateral primary osteoarthritis, right knee (principal); I10 Essential (primary) hypertension; E78.5 Hyperlipidemia, unspecified; K21.9 Gastro-esophageal reflux disease without esophagitis; Z98.1 Arthrodesis status; Z79.899 Other long term (current) drug therapy
CPT/HCPCS: 97110; 97161; 64999; 64448; 76942; 80053; 85025; 85610; 85730; 88300; 73560; 27447; C1776; C1713 ×2; J2250; J1200; J1100; J2710; J0690; J2405; J2001; J3010; J1170 ×2; J2795 ×2; J0330; J2704

== ENCOUNTER 2020-10-26 12:43 | Day surgery (SDC) | payer MEDICARE ==
--- NOTE | 2020-10-26 01:26 | HP ---
HISTORY AND PHYSICAL REASON FOR ADMISSION: Surgery scheduled for 10/26/2020 HISTORY OF PRESENT ILLNESS: Rigoberto Kirby is a 75-year-old patient who had undergone right total knee arthroplasty on 09/25/2020. He was seen in the office and noted to have some drainage along the anterior aspect of the knee. He was noted to have what appeared to be a superficial probable suture abscess. I recommended incision with irrigation and debridement. He was agreeable. Consent was obtained. PAST MEDICAL HISTORY: Hypertension, gastroesophageal reflux disease. PAST SURGICAL HISTORY: Bilateral total knee arthroplasty. MEDICATIONS: Amlodipine, omeprazole, lovastatin, aspirin, tramadol. ALLERGIES: None. SOCIAL HISTORY: Denies tobacco use. PHYSICAL EXAMINATION: Evaluation of the right knee, there is evidence for some drainage along the anterior incision site. Very mild erythema. Range of motion is -5 to 90 degrees with no pain. There is no intra-articular effusion palpable. His ligaments are stable. Hip rotation without pain. Distal neurovascular exam intact. Previous radiographs revealed a stable appearing total knee arthroplasty. IMPRESSION: 1. Sterile suture abscess, right knee incision. 2. History of right total knee arthroplasty. 3. Hypertension. 4. Hyperlipidemia. PLAN: Irrigation debridement right knee incision. Surgery scheduled for 10/26/2020. MMODL / IJN: [id number] /
[2020-10-26] MEDS ORDERED: ONDANSETRON 4 MG/2 ML VIAL ONE (13:03)
[2020-10-26] MEDS ORDERED: LACTATED RINGERS 1,000 ML IV ONE (13:14)
[2020-10-26] MEDS ORDERED: DEXAMETHASONE SOD PHOSPHATE 4 MG/ML 1 ML VIAL IVP ONE (13:16)
[2020-10-26] MEDS ORDERED: ONDANSETRON 4 MG/2 ML VIAL IVP ONE (13:16)
[2020-10-26] MEDS ORDERED: MIDAZOLAM 2 MG/2 ML VIAL ONE (14:00)
[2020-10-26] MEDS ORDERED: PROPOFOL 10 MG/ML 20 ML VIAL IV ONE (14:00)
[2020-10-26] MEDS ORDERED: fentaNYL (PF) 50 MCG/ML 2 ML AMP ONE (14:00)
[2020-10-26] MEDS ORDERED: LIDOCAINE 1% INJ 10MG/ML (20 ML MDV) ONE (14:00)
[2020-10-26] MEDS ORDERED: SODIUM CHLORIDE 0.9% 100 ML with ceFAZolin 2,000 MG IV ONE ×2 (14:07)
--- NOTE | 2020-10-26 14:41 | P.OP ---
Date of Procedure: 10/26/20 Preoperative Diagnosis: Right knee sterile incisional suture abscess Postoperative Diagnosis: Same Procedure(s) Performed: Incision with excisional debridement right knee incisional suture abscess Anesthesia: TOMAS Surgeon: Sukhjinder Finn Radar Repairer #1: Getachew Hensley Estimated Blood Loss (ml): 3 Pathology: none sent Condition: stable Disposition: PACU Indications for Procedure: 75-year-old patient seen with probable right knee sterile incisional suture abscesses with history of recent total knee arthroplasty. I recommended incision with debridement. He was agreeable. Consent was obtained. Operative Findings: see description of procedure Description of Procedure: The patient was taken to the operative suite. He underwent a general anesthetic by the department of anesthesia. He received preoperative IV antibiotics. A well-padded tourniquet placed proximal right thigh. The right lower extremity was prepped and draped in the normal sterile fashion. I made an incision through the center portion of the previous incision where the drainage was occurring. I dissected down to the extensor mechanism. I did note some serous fluid. I do not see any obvious purulence or abscess. The extensor mechanism was intact. Utilizing a #15 blade I excisionally debrided out some abnormal looking tissue along the peripheral aspect of the incision. I now irrigated the wound out copiously with Irresept. I now began explore the wound and again found no evidence of any deep infection, the extensor mechanism was intact. With the assistance of Jaison RIVERA now repaired the subcu soft tissues with 2-0 Vicryl. The skin margins were approximated with 3-0 nylon. We applied sterile dressings. The tourniquet was not utilized. The patient was awakened and transferred recovery in stable condition.
[2020-10-26 15:04] VITALS: RESP 16; TEMP 97.7
[2020-10-26] MEDS ORDERED: HYDROmorphone 0.5 MG/0.5 ML SYRINGE IVP ONE (15:06)
[2020-10-26 16:01] VITALS: BP 163/82; PULSE 64
== END 2020-10-26 16:16 | disposition home or self-care (01) ==
LOC: OR 12:43
PROVIDERS: ATTEND Orthopaedic Surgery
DX: L02.415 Cutaneous abscess of right lower limb (principal); I25.10 Atherosclerotic heart disease of native coronary artery without angina pectoris; I10 Essential (primary) hypertension; E78.5 Hyperlipidemia, unspecified; Z95.1 Presence of aortocoronary bypass graft; G47.33 Obstructive sleep apnea (adult) (pediatric); Z86.73 Personal history of transient ischemic attack (TIA), and cerebral infarction without residual deficits; K21.9 Gastro-esophageal reflux disease without esophagitis; Z99.81 Dependence on supplemental oxygen
CPT/HCPCS: 11042; J2250; J1100; J2405; J0690; J2001; J3010; J2704; J1170

== ENCOUNTER 2021-10-12 19:22 | Emergency (ER) | payer MEDICARE ==
[2021-10-12] MEDS ORDERED: LIDOCAINE 1% INJ 10MG/ML (5 ML VIAL-PF) SQ ONE (20:14)
--- NOTE | 2021-10-12 20:23 | ED ---
Wound/Laceration HPI - General Chief Complaint: Wound/Laceration Stated Complaint: laceration to finger Time Seen by Provider: 10/12/21 19:52 Source: patient, family, RN notes reviewed Limitations: no limitations - History of Present Illness Initial Comments: This is a 76-year-old male who presents to the emergency department for a laceration to the left middle finger. Patient states that there was a stick stuck underneath his lawnmower. He attempted to remove it and lacerated his finger on the belt of the lawnmower. Minor active bleeding is noted. Currently complaining of some pain and numbness. He takes a baby aspirin daily. Denies any difficulty moving the finger. He is unsure when his last tetanus vaccine was, but states that he is not willing to updated today. Denies any fevers, chills, sore throat, cough, dyspnea, chest pain, palpitations, abdominal pain, nausea, vomiting, diarrhea, back pain, or headaches. Extremity Location: Left: Hand Place: home Patient Tetanus UTD: No Context: accidental Treatments Prior to Arrival: bandage - Related Data Home Medications Medication Instructions Recorded Confirmed Omeprazole [PriLOSEC] 20 mg PO AC-BRKFST 05/17/15 10/26/20 rOPINIRole HCL [Requip] 2 mg PO TID 05/17/15 10/26/20 Rosuvastatin Calcium 5 mg PO HS 04/09/17 10/26/20 amLODIPine [Norvasc] 10 mg PO DAILY 04/09/17 10/26/20 Aspirin [Adult Low Dose Aspirin EC] 81 mg PO DAILY 09/21/20 10/26/20 Previous Rx's Medication Instructions Recorded traMADol HCl [Ultram] 50 mg PO Q6H PRN #40 tab 04/15/17 Aspirin [Adult Low Dose Aspirin EC] 81 mg PO BID #60 tablet. 09/25/20 Docusate [Colace] 100 mg PO DAILY #30 capsule 09/25/20 HYDROcodone/APAP 7.5-325MG [Durand 1 - 2 each PO Q6HR PRN #42 tab 09/25/20 7.5] Cephalexin [Keflex] 500 mg PO Q6HR 1 Days #40 cap 10/26/20 HYDROcodone/APAP 5-325MG [[place] 1 tab PO Q6HR PRN 7 Days #28 tab 10/26/20 5-325] Cephalexin [Keflex] 500 mg PO Q8HR 5 Days #15 cap 10/12/21 Allergies Allergy/AdvReac Type Severity Reaction Status Date / Time [id number]-[id number]-IoC Reductase Allergy Itching Verified 10/12/21 19:46 Inhibitor [Fykgucd-Rge-Aam Reductase Inhibitor] Review of Systems ROS Statement: Those systems with pertinent positive or pertinent negative responses have been documented in the HPI. ROS Other: All systems not noted in ROS Statement are negative. Past Medical History Past Medical History: Coronary Artery Disease (CAD), CVA/TIA, Eye Disorder, GERD/Reflux, Hyperlipidemia, Hypertension, Musculoskeletal Disorder, Osteoarthritis (OA), Sleep Apnea/CPAP/BIPAP, Syncope Additional Past Medical History / Comment(s): RT EYE STROKE, HX CATARACT. USING CPAP. SYNCOPE, LAST 03/2014. INJ LT KNEE. History of Any Multi-Drug Resistant Organisms: None Reported Past Surgical History: Coronary Bypass/CABG, Heart Catheterization With Stent, Joint Replacement, Tonsillectomy Additional Past Surgical History / Comment(s): TOTAL RT HIP. LT TKA, RT EYE CATARACT EXC, IMPLANT. LOOP IMPLANT, ICM DEVICE, [employer]. COLONOSCOPY TRIPLE CABG 2017 Past Anesthesia/Blood Transfusion Reactions: No Reported Reaction Date of Last Stent Placement:: 2013 Type of Cardiac Device: Loop Device Placement Date:: 2013 EST Past Psychological History: No Psychological Hx Reported Smoking Status: Former smoker Past Alcohol Use History: None Reported Past Drug Use History: None Reported - Past Family History Father Family Medical History: Cancer Mother Family Medical History: Cancer General Exam Limitations: no limitations General appearance: alert, in no apparent distress Head exam: Present: atraumatic, normocephalic, normal inspection Respiratory exam: Present: normal lung sounds bilaterally. Absent: respiratory distress, wheezes, rales, rhonchi, stridor Cardiovascular Exam: Present: regular rate, normal rhythm, normal heart sounds. Absent: systolic murmur, diastolic murmur, rubs, gallop, clicks Neurological exam: Present: alert, oriented X3, CN II-XII intact Psychiatric exam: Present: normal affect, normal mood Skin exam: Present: other (4 cm curved laceration on the dorsal aspect of the left middle finger just superior to the DIP joint.) Course Vital Signs 10/12/21 10/12/21 19:42 21:35 Temperature 98.1 F 98.8 F Pulse Rate 64 72 Respiratory 22 18 Rate Blood Pressure 149/73 136/87 O2 Sat by Pulse 97 98 Oximetry Procedures - Laceration Laceration #1 Consent Obtained: verbal consent Indication: laceration Site: hand (left middle finger) Size (cm): 4 Description: flap Depth: simple, single layer Anesthetic Used: lidocaine 1% Anesthesia Technique: local infiltration Amount (mls): 2 Pre-repair: wound explored, irrigated extensively Type of Sutures: nylon Size of Sutures: 5-0 Number of Sutures: 4 Technique: simple, interrupted Medical Decision Making - Medical Decision Making This is a 76-year-old male who presents to the emergency department for a laceration to the left middle finger. This was repaired with sutures. Patient declines to update his tetanus status despite my strongest recommendations. Prescription for Keflex sent to the pharmacy with the first dose administered here, as this was a dirty wound. Advised that he will need to return in 7-10 days for suture removal. Advised taking Tylenol and ibuprofen as needed for pain relief. Return precautions reviewed in depth, the patient is instructed to return to the emergency department with any new, worsening, or concerning symptoms. Patient verbalized understanding. This case was discussed in detail with the attending ED physician. Presentation, findings, and treatment plan discussed in detail as well. Disposition Clinical Impression: Laceration Disposition: HOME SELF-CARE Instructions (If sedation given, give patient instructions): Care For Your Stitches (ED) Additional Instructions: Return to the emergency department with any new, worsening, or concerning symptoms and in 7-10 days for suture removal. Take the Keflex as prescribed for 5 days. Prescriptions: Cephalexin [Keflex] 500 mg PO Q8HR 5 Days #15 cap Is patient prescribed a controlled substance at d/c from ED?: No Referrals: Emily Sharpe DO [Primary Care Provider] - 1-2 days
[2021-10-12] MEDS ORDERED: CEPHALEXIN 500 MG CAP PO STA (21:17)
[2021-10-12 21:36] VITALS: BP 136/87; PULSE 72; RESP 18; TEMP 98.8
== END 2021-10-12 21:36 | disposition home or self-care (01) ==
LOC: EC 19:22
DX: S61.213A Laceration without foreign body of left middle finger without damage to nail, initial encounter (principal); K21.9 Gastro-esophageal reflux disease without esophagitis; E78.5 Hyperlipidemia, unspecified; I10 Essential (primary) hypertension; I25.10 Atherosclerotic heart disease of native coronary artery without angina pectoris; Z88.8 Allergy status to other drugs, medicaments and biological substances; Z79.899 Other long term (current) drug therapy; Z79.82 Long term (current) use of aspirin; Z87.891 Personal history of nicotine dependence; Z86.73 Personal history of transient ischemic attack (TIA), and cerebral infarction without residual deficits; W28.XXXA Contact with powered lawn mower, initial encounter
CPT/HCPCS: 12002; 99282

== ENCOUNTER → 2022-07-25 | Outpatient (CLI) | payer MEDICARE ==
--- NOTE | 2022-07-26 18:00 | MR ---
EXAMINATION TYPE: MR lumbar spine wo con DATE OF EXAM: 07/25/2022 COMPARISON: None HISTORY: 76-year-old male Low back pain, spondylosis with radiculopathy TECHNIQUE: Multiplanar, multisequence images of the lumbar spine were acquired without IV contrast. FINDINGS: Mild to moderate multilevel degenerative disc disease with desiccation and bulging discs. Moderate di sc space narrowing L1-L2. Some mild scattered edematous Modic type II endplate change is present, but pronounced towards the le ft at L2-L3. Hypertrophic facet arthropathy is present throughout with scattered ligamentum flavum thickening. * Degenerative grade 1 retrolisthesis at L1-L2, L2-L3, and L3-L4. Grade 1 anterolisthesis L4-L5. * Vertebral body heights are preserved. * No suspicious bone marrow replacement. * Conus medullaris is normal. At T12-L1, mild disc bulge without significant canal or foraminal stenosis. At L1-L2, there is facet arthropathy with diffuse disc bulge and grade 1 retrolisthesis. There is pro minent impression on the ventral thecal sac without significant spinal canal stenosis. Moderate right neuroforaminal stenosis. Mild on the left. At L2-L3, diffuse disc bulge with facet arthropathy and ligamentum flavum thickening. Mild circumfere ntial narrowing of the spinal canal. Degenerative grade 1 retrolisthesis. There is moderate right and moderate to severe left neuroforaminal stenosis. At L3-L4, there is diffuse disc bulge with a hypertrophic facet arthropathy and marked ligamentum fla vum thickening. Focal severe spinal canal stenosis with loss of CSF signal in the thecal sac. Redunda ncy of cauda equina nerve roots below this level. Moderate to severe left and severe right neuroforam inal stenosis. At L4-L5, hypertrophic facet arthropathy with ligamentum flavum thickening, disc bulge, grade 1 anter olisthesis. Mild overall narrowing of the spinal canal. There is moderate bilateral neuroforaminal st enosis. At L5-S1, disc bulge and facet arthropathy. There is mild left neural foraminal stenosis. No signific ant spinal canal stenosis. 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 IMPRESSION: 1. Mild to moderate multilevel degenerative disc disease. Prominent edematous Modic type II endplate change towards the left at L2-L3. 2. Additional multilevel hypertrophic facet arthropathy and ligamentum flavum thickening, greatest at L3-L4. 3. Degenerative grade 1 spondylolisthesis L1-L2, L2-L3, L3-L4, L4-L5. 4. Overall severe focal spinal canal stenosis at L3-L4. Moderate to severe left and severe right neur al foraminal stenosis at this level. 5. Mild overall spinal canal stenosis at L2-L3 and L4-L5. 6. Moderate to severe left neuroforaminal stenosis at L2-L3. Moderate bilateral neural foraminal sten osis at L4-L5. 7. 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
== END | disposition home or self-care (01) ==
LOC: RADMRIMAIN 10:49
PROVIDERS: ATTEND Nurse Practitioner Family
DX: M47.26 Other spondylosis with radiculopathy, lumbar region (principal); M51.16 Intervertebral disc disorders with radiculopathy, lumbar region; M43.16 Spondylolisthesis, lumbar region; M99.73 Connective tissue and disc stenosis of intervertebral foramina of lumbar region; I70.0 Atherosclerosis of aorta
CPT/HCPCS: 72148